=== PATIENT | male | born 1980 | race Caucasian/White ===

== ENCOUNTER 2024-07-06 10:01 | Outpatient (REF) | payer MEDICARE, MEDICAID, SELFPAY ==
[2024-07-06 15:47] LABS: ALT 47 U/L (16-63); AST 27 U/L (15-37); Albumin 4.2 g/dL (3.4-5.0); Alkaline Phosphatase 86 U/L (46-116); Anion Gap 5.2 mmol/L (3-11); BUN 19 mg/dL (7-18); Bilirubin, Total 0.7 mg/dL (0.2-1.0); CO2 31.8 mmol/L (21.0-32.0); CREATININE 1.2 mg/dL (0.70-1.30); Calcium 9.8 mg/dL (8.5-10.1); Calculated LDL 129 mg/dL (<100); Chloride 101 mmol/L (98-107); Cholesterol 203 mg/dL (<200); Estimated GFR 76.48 (mL/min/1.73m2); Glucose 207 mg/dL (74-106); HDL Cholesterol 49 mg/dL (>or=40); Hemoglobin A1C 8.6 % (<5.7); Potassium 4.5 mmol/L (3.5-5.1); Sodium 138 mmol/L (136-145); Total Protein 7.8 g/dL (6.4-8.2); Triglyceride 127 mg/dL (<150)
[2024-07-07 11:12] LABS: HIV-1/2 Ag & Ab Screen Negative (Negative)
[2024-07-07 11:32] LABS: Hepatitis C Ab w Rflx HCV PCR Negative (Negative)
== END 2024-07-06 10:02 | disposition home or self-care (01) ==
LOC: NCHCN 10:01
PROVIDERS: Visit Provider Student in an Organized Health Care Education/Training Program
DX: Z13.1 Encounter for screening for diabetes mellitus (principal); Z13.220 Encounter for screening for lipoid disorders; Z11.4 Encounter for screening for human immunodeficiency virus [HIV]; Z11.59 Encounter for screening for other viral diseases; Z13.228 Encounter for screening for other metabolic disorders
CPT/HCPCS: 80053; 80061; 86803; 87389; 83036

== ENCOUNTER 2024-10-04 16:25 | Outpatient (REF) | payer MEDICARE, MEDICAID, SELFPAY ==
[2024-10-04 16:18] LABS: COMMENT (LAB VIEW ONLY) 119.56 mg/dL; Microalb ug/mg Crea 12.9 ug/mg Cr
== END 2024-10-04 16:26 | disposition home or self-care (01) ==
LOC: NCHCN 16:25
PROVIDERS: Visit Provider Student in an Organized Health Care Education/Training Program
DX: E11.9 Type 2 diabetes mellitus without complications (principal)
CPT/HCPCS: 82043; 82570

== ENCOUNTER 2024-10-23 21:03 | Emergency (ER) | payer MEDICARE, MEDICAID, SELFPAY ==
[2024-10-23 21:07] VITALS: BP 136/92; PULSE 96; RESP 14; TEMP 36.4; O2SAT 96
--- NOTE | 2024-10-23 21:33 | W.ED.GENAD ---
Discharge Plan Disposition Patient Disposition: Home Condition: Stable Discharge Details Clinical Impression: Superficial burn of digit of right hand Primary Care Provider: Unknown,Unknown ED Provider: Regis Telles Home Meds and New Rx's Prescriptions: Continued propranolol 20 mg tablet 20 mg PO ONCE losartan [Cozaar] 25 mg tablet 25 mg PO DAILY citalopram [Celexa] 20 mg tablet 20 mg PO DAILY Discharge Instructions Additional Instructions: You can use a small amount of lidocaine on the fingers every 3 hours. Use the bacitracin twice a day for 5 days. The burn should heal without further intervention. If you feel more ill or have new symptoms such as high fevers return to emergency department for reevaluation. HPI General Mode of arrival: ambulatory. Date/Time Provider Initiated Documentation: 10/23/24 21:04. Limitations to Documentation: no limitations. Information obtained by: patient. History of Present Illness 44 year old M presents to the emergency department with the chief complaint of burned left hand fingers, described as mild, Quality is described as burning, and is localized to the left and upper extremity. Patient reports no radiation. Patient started experiencing this hour(s) (1) and it has been constant. No relieving factors improve symptom(s), No exacerbating factors reported . Patient notes no other symptoms.. Related Data Home Medications ?Medication ?Instructions ?Recorded ?Confirmed citalopram 20 mg tablet (Celexa) 20 mg PO DAILY 10/23/24 10/23/24 losartan 25 mg tablet (Cozaar) 25 mg PO DAILY 10/23/24 10/23/24 propranolol 20 mg tablet 20 mg PO ONCE 10/23/24 10/23/24 Allergies Allergy/AdvReac Type Severity Reaction Status Date / Time No Known Allergies Allergy Unverified 10/23/24 21:13 General Stated Complaint: Burn VINICIO: 4 Review of Systems All systems reviewed & are unremarkable except as noted in HPI and below Constitutional Constitutional: Denies chills, Denies fever(s) and Denies weakness Gastrointestinal Gastrointestinal: Denies abdominal pain, Denies nausea and Denies vomiting Neurologic Neurologic: Denies weakness Exam Const General: no acute distress Orientation: alert HENMT Head: normal to inspection Ears: external ears normal General nose exam: external nose normal Mouth: moist mucous membranes Eyes General: appearance normal, both eyes and all related structures Neck Neck: normal visual inspection Resp Effort & Inspection: normal respiratory effort and able to speak in complete sentences Cardio Rate: regular rate Neuro General: patient alert and patient oriented x3 Extrem General: full ROM and capillary refill normal Psych Mental Status: mental status grossly normal Course Vital Signs Vital signs: Vital Signs Temperature 36.4 C L 10/23/24 21:07 Pulse 96 H 10/23/24 21:07 Respiratory Rate 14 10/23/24 21:07 Blood Pressure 136/92 H 10/23/24 21:07 Pulse Oximetry 96 10/23/24 21:07 Temperature 36.4 C L 10/23/24 21:07 Temperature Source Oral 10/23/24 21:07 Pulse 96 H 10/23/24 21:07 Respiratory Rate 14 10/23/24 21:07 Blood Pressure 136/92 H 10/23/24 21:07 Blood Pressure Position Sitting 10/23/24 21:07 Pulse Oximetry 96 10/23/24 21:07 Oxygen Delivery Method Room Air 10/23/24 21:07 Oxygen Flow Rate 0 10/23/24 21:07 Pain Level 6 10/23/24 21:07 Medical Decision Making 44-year-old male comes in with a left hand finger burn. He says that he touched some vegetable oil he did not know was hot on the perez which caused mascorro to the tips of his 2nd and 4th fingers. No falls or other trauma. He has what appears to be superficial mascorro to the tips of close previous mentioned fingers. It is dry with some mild erythema. There is blanching. He has intact sensation and pulses. Advised that this will heal without intervention will provide topical lidocaine to use as needed for discomfort and also bacitracin. Return precautions given Differential Diagnosis Differential Diagnosis: superficial burn, superficial partial PFSH All Active Problems (Updated 10/23/24 @ 21:40 by Regis Telles MD) Superficial burn of digit of right hand (Acute) Social History Smoking/Tobacco Use Status: Former Tobacco Use Smoking risk assessment performed?: Yes Alcohol Intake: former Drug use: Daily Substance use type: marijuana Housing: house
[2024-10-23] MEDS: Bacitracin 30 GM TUBE TP (21:39)
[2024-10-23] MEDS: Lidocaine 4% Cream 5 GM TUBE TP ×3 (21:40)
== END 2024-10-23 21:47 | disposition home or self-care (01) ==
LOC: ER 21:53
PROVIDERS: Emergency Provider Emergency Medicine; PCP Student in an Organized Health Care Education/Training Program
DX: T23.132A Burn of first degree of multiple left fingers (nail), not including thumb, initial encounter (principal); X10.2XXA Contact with fats and cooking oils, initial encounter
CPT/HCPCS: 99283; 99282